=== PATIENT | male | born 1955 | race Caucasian/White ===

== ENCOUNTER 2017-11-12 05:43 | Observation (INO) | payer OTHER ==
[2017-11-12] MEDS ORDERED: DEXAMETHASONE 4 MG/ML VIAL IVP ONE (05:57)
[2017-11-12] MEDS ORDERED: FAMOTIDINE 20 MG TAB PO ONE (05:57)
[2017-11-12] MEDS ORDERED: ACETAMINOPHEN 325 MG TAB PO ONE (05:57)
[2017-11-12] MEDS ORDERED: LR 1,000 ML IV ONE (05:58)
[2017-11-12] MEDS ORDERED: LIDOCAINE 1% 2 ML INJ ID PRN (05:58)
[2017-11-12] MEDS ORDERED: ROPIVACAINE 0.2% 80 MG, EPINEPHrine 0.2 MG, KETOROLAC TROMETHAMINE 30 MG in SYRINGE 0 ML IU ONE (06:00)
[2017-11-12] MEDS ORDERED: BUPI/epINEPH/KETOROLAC IU ONE (06:00)
[2017-11-12] MEDS ORDERED: FAMOTIDINE 20 MG TAB ONE (06:16)
[2017-11-12] MEDS ORDERED: ceFAZolin 2 GM/SWFI 2 GM/20 ML SYR IVP ONE (06:30)
[2017-11-12] MEDS ORDERED: THROMBIN (BOVINE) 5,000 UNIT VIAL TP ONE (06:34)
[2017-11-12] MEDS ORDERED: CALCIUM CHLORIDE 1 GM/10 ML INJ ONE (06:34)
[2017-11-12] MEDS ORDERED: ceFAZolin 1 GM/5 ML SYR ONE (06:35)
--- NOTE | 2017-11-12 07:07 | PDHPUP ---
History & Physical Update H&P update statement: This history and physical update is based on an assessment of the patient which was completed after admission or registration (within 24 hours), but prior to the surgery/procedure. H&P update: H&P reviewed & patient examined, no change in patient's condition since H&P completed
[2017-11-12] MEDS ORDERED: MIDAZOLAM 2 MG/2 ML VIAL ONE (07:08)
[2017-11-12] MEDS ORDERED: MIDAZOLAM 2 MG/2 ML VIAL IVP ONE (07:08)
--- NOTE | 2017-11-12 07:08 | PDANEPAE ---
ANE History of Present Illness 62 year old male w/ PMHx of HTN and OA presents for left total knee arthroplasty. ANE Past Medical History - Cardiovascular History Hx Hypertension: Yes Hx Arrhythmias: No Hx Chest Pain: No Hx Coronary Artery / Peripheral Vascular Disease: No Hx CHF / Valvular Disease: No Hx Palpitations: No - Pulmonary History Hx COPD: No Hx Asthma/Reactive Airway Disease: No Hx Recent Upper Respiratory Infection: No Hx Oxygen in Use at Home: No Hx Sleep Apnea: No Pulmonary History Comment: SEASONAL HAYFEVER - Neurologic History Hx Cerebrovascular Accident: No Hx Seizures: No Hx Dementia: No - Endocrine History Hx Diabetes: No Hypothyroid: No Hyperthyroid: No Obesity: mild - Renal History Hx Renal Disorders: No - Liver History Hx Hepatic Disorders: No - Neurological & Psychiatric Hx Hx Neurological and Psychiatric Disorders: No - Cancer History Hx Cancer: No - Congenital Disorder History Hx Congenital Disorders: No - GI History Hx Gastrointestinal Disorders: No - Other Health History Other Health History: OSTEOARTHRITIS - Chronic Pain History Chronic Pain: Yes (LT KNEE) - Surgical History Prior Surgeries: UMBILICAL HERNIA 2016. APPENDECTOMY ANE Review of Systems Review of systems is: negative Review of Systems: - Exercise capacity Exercise capacity: >=4 METS METS (RN): 4 METS ANE Patient History - Allergies Allergies/Adverse Reactions: alcohol [beer] Allergy (Verified 10/30/17 15:08) THROAT SWELLING Penicillins Allergy (Verified 10/30/17 11:52) Hives - Home Medications Home medications: home medication list seen and reviewed Home Medications: Aspirin [Aspirin 325 mg (*)] 325 mg PO DAILY 10/30/17 [Last Taken 11/05/17] Lisinopril/Hctz 20/12.5MG [Zestoretic/Prinzide 20/12.5MG (*)] 1 ea PO DAILY@12 10/30/17 [Last Taken 11/11/17 12:00] Rosuvastatin Calcium [Crestor 10mg (RX)] 5 mg PO DAILY@10/30/17 [Last Taken 11/11/17 12:00] - NPO status NPO Status: no food or drink >8 hours NPO Since - Liquids (Date): 11/11/17 NPO Since - Liquids (Time): 21:30 NPO Since - Solids (Date): 11/11/17 NPO Since - Solids (Time): 20:30 - Anes Hx Anes Hx: no prior problems - Smoking Hx Smoking Status: Never smoked Marijuana use: No - Alcohol Use Alcohol Use: None - Family Anes Hx Family Anes Hx: neg - N/A ANE Labs/Vital Signs - Vital Signs Vital Signs: reviewed preoperatively; see RN documention for details Blood Pressure: 178/108 Heart Rate: 67 Respiratory Rate: 20 O2 Sat (%): 95 Height: 182.88 cm Weight: 102.058 kg ANE Physical Exam - Airway Neck exam: FROM, increased neck circumference Mallampati Score: Class 2 Mouth exam: sheppard Mouth image: 1 - Bridge/veneers - Pulmonary Pulmonary: no respiratory distress - Cardiovascular Cardiovascular: regular rate and rhythym - ASA Status ASA Status: II ANE Anesthesia Plan Anesthesia Plan: spinal Regional Anesthesia: single shot NB, adductor canal FNB Total IV Anesthesia: No
[2017-11-12] MEDS ORDERED: PROPOFOL/EMULSION 500 MG/50 ML BOTTLE IV ONE ×2 (07:10→08:14)
[2017-11-12] MEDS ORDERED: ONDANSETRON 4 MG/2 ML VIAL IVP PRN ×2 (08:45→10:25)
[2017-11-12] MEDS ORDERED: NALOXONE HCL 0.4 MG/ML INJ IVP PRN (08:45)
[2017-11-12] MEDS ORDERED: PHENYLEPHRINE HCL 100 MCG/ML SYR IVP PRN (08:45)
[2017-11-12] MEDS ORDERED: LR 500 ML IV PRN (08:45)
[2017-11-12] MEDS ORDERED: ONDANSETRON 4 MG/2 ML VIAL ONE (09:08)
[2017-11-12] MEDS ORDERED: DEXAMETHASONE 4 MG/ML VIAL ONE (09:08)
[2017-11-12] MEDS ORDERED: ROPIVACAINE HCL 150 MG/30 ML INJ ONE (09:09)
[2017-11-12] MEDS ORDERED: fentaNYL 100 MCG/2 ML INJ ONE ×2 (09:35→10:36)
[2017-11-12] MEDS ORDERED: diphenhydrAMINE 25 MG CAP PO PRN (10:25)
[2017-11-12] MEDS ORDERED: DIPHENOXYLATE/ATROPINE LOMOTIL 1 TAB PO PRN (10:25)
[2017-11-12] MEDS ORDERED: LACTULOSE 20 GM/30 ML UDCUP PO PRN (10:25)
[2017-11-12] MEDS ORDERED: POLYETHYLENE GLYCOL 3350 17 GM PKT PO PRN (10:25)
[2017-11-12] MEDS ORDERED: ONDANSETRON DISINTEGRATING 4 MG TAB PO PRN (10:25)
[2017-11-12] MEDS ORDERED: CYCLOBENZAPRINE 10 MG TAB PO PRN (10:25)
[2017-11-12] MEDS ORDERED: METOCLOPRAMIDE 10 MG/2 ML VIAL IVP PRN (10:25)
[2017-11-12] MEDS ORDERED: MAGNESIUM HYDROXIDE 30 ML UDCUP PO PRN (10:25)
[2017-11-12] MEDS ORDERED: BISACODYL 10 MG SUPP PR PRN (10:25)
[2017-11-12] MEDS ORDERED: PROMETHAZINE HCL 25 MG SUPPR PR PRN (10:25)
[2017-11-12] MEDS ORDERED: PROMETHAZINE HCL 25 MG/ML INJ IVP PRN (10:25)
[2017-11-12] MEDS ORDERED: LR 1,000 ML IV SCH (10:30)
--- NOTE | 2017-11-12 10:31 | POSTOPPROG ---
Post Op Note Date of Operation: 11/12/17 Surgeon: Jyotsna Santamaria Ice Cream Van Vendor: Brenda Rizo Anesthesiologist: Dr. Duvall Anesthesia: GET(General Endotracheal), Spinal Pre-op Diagnosis: left knee osteoarthritis Post-op Diagnosis: left knee osteoarthritis Indication: left knee pain Procedure: left TKA Inf/Abcess present in the surg proc area at time of surgery?: No EBL: 100-500 Complications: none
--- NOTE | 2017-11-12 10:33 | SOAPPROG ---
SOAP Progress Note Assessment/Plan: Assessment/Plan: 62y/o male s/p left TKA - orders as written - PT/OT - active care system for DVT prevention - ASA starts tomorrow am - xrays pending - call with issues or concerns 11/12/17 10:31 Subjective: Having left leg pain, otherwise doing ok Objective: Vital Signs Temp Pulse Resp BP Pulse Ox 36.6 C 67 20 178/108 H 95 11/12/17 07:05 11/12/17 07:08 11/12/17 07:08 11/12/17 07:08 11/12/17 07:08 NAD, waking from anesthesia EOMi, face symmetric MAEx4 incision clean, dressed ICD10 Worksheet Patient Problems: Problems Problem Status Onset Osteoarthritis Acute - ICD10 Problem Qualifiers (1) Osteoarthritis
[2017-11-12] MEDS ORDERED: HYDROmorphONE/DILAUDID 2 MG/ML INJ ONE (10:36)
[2017-11-12] MEDS: fentaNYL 100 MCG/2 ML INJ IVP PRN ×2 (10:39→10:55)
[2017-11-12] MEDS: HYDROmorphONE/DILAUDID 2 MG/ML INJ IVP PRN ×4 (10:43→11:36)
--- NOTE | 2017-11-12 12:34 | POSTANESTH ---
Post Anesthetic Evaluation Cardiovascular Status: Normal, Stable, Similar to Pre-Op Cond Respiratory Status: Normal, Stable, Similar to Pre-op Cond. Level of Consciousness/Mental Status: Can Participate in Eval, Alert and Oriented Pain Control: Adequate, Prn Tx Ordered Nausea/Vomiting Control: Adequate, Prn Tx Ordered Complications Possibly Related to Anesthesia: None Noted
[2017-11-12] MEDS: LISINOPRIL/HCTZ 20/12.5MG 1 EA TAB PO SCH (12:58)
[2017-11-12] MEDS: ACETAMINOPHEN 325 MG TAB PO SCH ×3 (12:59→23:57)
[2017-11-12] MEDS: ROSUVASTATIN CALCIUM 10 MG TAB PO SCH (12:59)
[2017-11-12] MEDS: oxyCODONE IR 5 MG TAB PO PRN ×4 (13:20→23:57)
[2017-11-12] MEDS ORDERED: ceFAZolin 2 GM/DEXTROSE 100 ML IV SCH (14:00)
--- NOTE | 2017-11-12 14:34 | GOP ---
[f rep st] OPERATIVE REPORT DATE OF OPERATION: 11/12/2017 SURGEON: Jyotsna Santamaria MD COMBAT SYSTEMS OPERATOR: Denae Rizo, PINEDA. ANESTHESIA: Spinal with general. PREOPERATIVE DIAGNOSIS: Severe osteoarthritis, left knee. POSTOPERATIVE DIAGNOSIS: Severe osteoarthritis, left knee. PROCEDURE PERFORMED: Left total knee arthroplasty. FINDINGS: Preoperative x-rays of the patient's left knee demonstrated severe osteoarthritis, most pr onounced in the medial compartment. The patient also had a varus deformity of the leg. At the time of surgery, the patient was noted to have complete loss of the articular cartilage in the medial comp artment. There was significant osteophyte formation around the periphery of the joint. The patient also had a moderate loss of articular cartilage in the lateral and patellofemoral joints. A cemented Mac [employer] Nephew Journey II posterior stabilized total knee arthroplasty was performed. A size 6 fe moral component was cemented into place. A size 7 tibial component was cemented into place. A 10 mm thick polyethylene was placed in the metal backing of the tibia. A size 35 mm oval patellar compone nt was also utilized. Following implantation of the components, the knee was taken through range of motion and achieved full extension and 135 degrees of flexion. The knee was stable to varus and valg us stressing both in extension and 30 degrees of flexion. The patella tracked well in the trochlear groove. ESTIMATED BLOOD LOSS: 150 cc. DESCRIPTION OF PROCEDURE: The patient was taken to the operating room, placed in supine position on the operating table. Following induction of spinal and general anesthesia, the knee and leg were pre pped and draped in the usual sterile manner. The patient received 2 g of IV Ancef. The leg was elev ated and exsanguinated, and the tourniquet inflated to 325 mmHg. The 13th Labo leg ching was used thro ughout the procedure for positioning. A midline incision was made extending from 2 fingerbreadths ab ove the superior pole of the patella distally to the tibial tubercle. Incision was carried down thro ug subcutaneous tissue to the retinaculum of the knee. A medial parapatellar arthrotomy was then pe rformed. The patella was everted laterally. The thickness of the patella was measured and then a 9 mm thick cut was taken from the patella. The patella was sized and then the cut surface was protecte d with a metal plate. The patella was placed in the lateral gutter. Our attention was then turned to the femur. Intramedullary referencing was utilized for the distal f emoral cut. A drill hole was placed in the distal femur and the intramedullary guide was inserted. The distal femoral cutting jig was positioned and pinned. A +2 cut was taken from the distal femur d ue to a pre-existing flexion contracture. The femur was then sized. The patient was between a 6 and 7 femoral component, and a 6 component was chosen. The size 6 femoral cutting block was placed on t he distal femur and pinned. The anterior, posterior and chamfer cuts were made. The size 6 componen t was then placed on the distal femur and the notch was cleared with a reamer followed by the box ost eotome. The femoral component was then removed and the tibia was retracted anteriorly with a posteri or retractor. Again, intramedullary referencing was utilized for the tibial cut. The intramedullary guide was inse rted and the tibial cutting block was pinned. It was pinned at the location which was previously det ermined by the lollipop. The tibial cut was then made. The tibia was sized and a size 7 tibial comp onent was chosen. It was pinned and then the keel punch was passed. A trial reduction was performed with the components including a 9 and 10 mm thick polyethylene. The best fit was noted with the 10 mm polyethylene. The patella was then prepared. The drill holes were placed in the patella. All the trial components were removed and the bony surfaces were thoroughly irrigated. Joint cocktai l was injected in the posterior capsule. The remnants of the medial and lateral meniscus were remove d as was the osteophyte on the posterior aspect of the femur. The cement was then mixed. The tibial component was cemented into place 1st followed by the femoral component and the patella. The knee w as brought into extension and all excess cement was removed from around the edges of the components. Once the cement was hard, the knee was flexed up and the trial polyethylene was removed and a 10 mm thick cross-linked polyethylene insert was placed in the backing of the tibia. The wound was thoroug hly irrigated out and the tourniquet was deflated. Hemostasis was obtained with the Bovie. The reti naculum of the knee was closed using #2 FiberWire in a [id number]-bm-irazf fashion. The subcutaneous tis margarita was closed using 2-0 Vicryl. The skin was closed using brett. Sterile dressings were applied. The patient tolerated the procedure well and there were no complications. Estimated blood loss minim al. Final sponge, needle and instrument counts were correct. The patient was transported to the [facility] overy room in good condition. /[id number]/MODL
[2017-11-12] MEDS: ceFAZolin 2 GM/SWFI 2 GM/20 ML SYR IVP SCH ×2 (15:29→23:58)
--- NOTE | 2017-11-12 16:41 | ASMTCMCOM ---
CM Note CM Note Notes: Chart reviewed. Patient 62 year old male s/p L TKA, Therapies pending. Needs TBD at this time. CM to follow. Date Signed: 11/12/2017 04:41 PM Electronically Signed By:Erum Craft RN
[2017-11-12] MEDS: ASPIRIN 81 MG CHEWABLE TAB PO SCH (20:56)
[2017-11-12] MEDS: FAMOTIDINE 20 MG TAB PO SCH (20:57)
[2017-11-12] MEDS: SENNOSIDES/DOCUSATE SODIUM TAB PO SCH (20:59)
[2017-11-13] MEDS: ACETAMINOPHEN 325 MG TAB PO SCH ×2 (05:22→12:03)
[2017-11-13] MEDS: oxyCODONE IR 5 MG TAB PO PRN ×3 (05:22→13:38)
[2017-11-13] MEDS: SENNOSIDES/DOCUSATE SODIUM TAB PO SCH (09:52)
[2017-11-13] MEDS: ASPIRIN 81 MG CHEWABLE TAB PO SCH (09:52)
[2017-11-13] MEDS: FAMOTIDINE 20 MG TAB PO SCH (09:52)
[2017-11-13] MEDS: ROSUVASTATIN CALCIUM 10 MG TAB PO SCH (12:08)
[2017-11-13 12:09] VITALS: BP 112/71
[2017-11-13] MEDS: LISINOPRIL/HCTZ 20/12.5MG 1 EA TAB PO SCH (12:09)
--- NOTE | 2017-11-13 14:10 | SOAPPROG ---
SOAP Progress Note Assessment/Plan: Assessment/Plan: 62y/o male s/p left TKA POD#1, stable and doing well - orders as written - PT/OT - active care system for DVT prevention; ASA - dc with home health care - call with issues or concerns; discussed return precautions; follow-up on November 26 11/13/17 14:07 Subjective: Pain controlled relatively well. Did great with PT. Feels ready to go home Objective: Vital Signs Temp Pulse Resp BP Pulse Ox 36.6 C 75 16 112/71 92 11/13/17 11:02 11/13/17 11:02 11/13/17 11:02 11/13/17 12:09 11/13/17 11:02 Laboratory Results 11/13/17 05:06 11/12/17 11/13/17 11/14/17 05:59 05:59 05:59 Intake Total 3425 Output Total 1500 Balance 1925 NAD, well appearing, no distress EOMi, face symmetric MAEx4 knee extension 5 flexion 90 minimal swelling incision CDI, no erythema or active drainage new dressing placed in sterile fashion ICD10 Worksheet Patient Problems: Problems Problem Status Onset Osteoarthritis Acute - ICD10 Problem Qualifiers (1) Osteoarthritis
--- NOTE | 2017-11-13 14:18 | PDIAF ---
- Diagnosis Code Status: Full Code - Medication Management Discharge Medications: Medications to Continue on Transfer Aspirin [Aspirin 325 mg (*)] 325 mg PO DAILY 10/30/17 [Last Taken 11/05/17] Lisinopril/Hctz 20/12.5MG [Zestoretic/Prinzide 20/12.5MG (*)] 1 ea PO DAILY@12 10/30/17 [Last Taken 11/11/17 12:00] Rosuvastatin Calcium [Crestor] 5 mg PO DAILY@12 10/30/17 [Last Taken 11/11/17 12 :00] Acetaminophen [Tylenol 325mg (*)] 650 mg PO Q6HRS tab 11/13/17 [Last Taken Unknown] Sennosides/Docusate Sodium [Senokot-S] 1 - 2 tab PO BID tab 11/13/17 [Last Taken Unknown] celeCOXIB [Celebrex (*)] 200 mg PO DAILY cap 11/13/17 [Last Taken Unknown] oxyCODONE IR [Oxycodone Ir (*)] 5 - 10 mg PO Q3HRS PRN tab 11/13/17 [Last Taken Unknown] Discharge Medications: Refer to the Discharge Home Medication list for PRN reason. - Orders Services needed: Home Care, Physical Therapy, Occupational Therapy Home Care Face to Face: I certify that this patient was under my care and that I had the required [id number] encounter meeting the encounter requirements on the discharge day. My findings support the fact that the patient is homebound as defined in Home Care Face to Face Continued: CMS Chapter 7 Medicare Benefits Manual 30.1.1 , The condition of the patient is such that there exists a normal inability to leave home and consequently, leaving home would require a considerable and taxing effort. Diet Recommendation: no restrictions on diet Diet Texture: Regular Texture Diet Varun Stockings Discontinue Date: active care system Wound Care Instructions: keep incision clean and dry Activity/Weight Bearing Restrictions: WBAT Additional Instructions: WBAT keep incision clean and dry follow-up on November 26 call with any issues or concerns - Follow Up Care Current Providers and Referrals: JAMES WHEAT [Primary Care Provider] -
--- NOTE | 2017-11-13 16:14 | ASDISCHSUM ---
Discharge Information Plan Status:Home with Home Health Medically Cleared to Leave: Discharge Date:11/13/2017 03:01 PM CM D/C Disposition:Home Health Service ADT D/C Disposition:[facility]NOT[facility] Projected Discharge Date:11/13/2017 11:00 AM Transportation at D/C: Discharge Delay Reason: Follow-Up Date:11/13/2017 11:00 AM Discharge Slot: Final Diagnosis: Placement Information Referral Type:*Home Health Care Services Referral ID:[id number] Provider Name:[facility] Address 1:[address] [address] Address 2: City:[place] Selection Factors: State:[place] Patient Contact Information Contact Name:BINH Relationship: Address:[address] Work Phone: City:[place] Alternate Phone: State/Zip Code:[place] [address] Email: Financial Information Financial Class:HMO and PPO Plans Primary Plan Desc:AL[employer] PPO Primary Plan Number:[id number] Secondary Plan Desc: Secondary Plan Number: Assessment Information [facility] CM Progress Note CM Note CM Note Notes: Chart reviewed. Patient 62 year old male s/p L TKA, Therapies pending. Needs TBD at this time. CM to follow. Date Signed: 11/12/2017 04:41 PM Electronically Signed By:Erum Craft RN [facility] CM Progress Note CM Note CM Note Notes: PT rec HHC, pt agreeable. Pt chooses [facility] who were arranged by MD office. Orders sent in [employer]. Date Signed: 11/13/2017 04:13 PM Electronically Signed By:JOLENE Boucher Intervention Information
== END 2017-11-13 15:01 | disposition home health service (06) ==
LOC: F3N 05:43
PROVIDERS: ADMIT Orthopaedic Surgery; ATTEND Orthopaedic Surgery
PROC: 3E0U0GB Introduction of Recombinant Bone Morphogenetic Protein into Joints, Open Approach (ICD-10-PCS; principal; 2017-11-12 07:15)
PROC: 0SRD0J9 Replacement of Left Knee Joint with Synthetic Substitute, Cemented, Open Approach (ICD-10-PCS; principal; 2017-11-12 07:15)
DX: M17.12 Unilateral primary osteoarthritis, left knee (principal); M21.162 Varus deformity, not elsewhere classified, left knee; M25.762 Osteophyte, left knee; I10 Essential (primary) hypertension; E78.5 Hyperlipidemia, unspecified; Z88.0 Allergy status to penicillin
CPT/HCPCS: 0232T; 27447; 73560; 97110; 97116; 97161; 97165; G0378; C1713; J0171; J0690; J1100; J1170; J1200; J1885; J2250; J2405; J2704; J2795; J3010